=== PATIENT | female | born 1965 | race Hispanic/Latino ===

== ENCOUNTER 2016-07-15 09:05 | Day surgery (SDC) | payer OTHER ==
[~2016-07-15] VITALS: Ht 165.1 cm; Wt 117.9 kg
[~2016-07-15 09:05] MED LIST: ASCO100089 PO; ASPI-973 PO; CHOL100045 PO; DOXY100C2 PO; FERR325C PO; FLUT9.9S NS; GLIP10TA10 PO; IBUP800T28 PO; LISI10TA PO; Lactated Ringer's 1,000 ML IV ONE; MAGN400C PO; METF1000 PO; METH500T PO; OMEG1000 PO; VIT1TABL83 PO; VITA200C61 PO
[2016-07-15] MEDS ORDERED: Propofol 10,000 mCg/mL 20 mL Inj ONE (09:06)
[2016-07-15] MEDS ORDERED: ATRV10T PO (09:22)
[2016-07-15 09:27] VITALS: BP 111/62; PULSE 82; RESP 16; O2SAT 99
[2016-07-15] MEDS ORDERED: NPH,100V11 SUBQ (09:27)
[2016-07-15] MEDS ORDERED: Lactated Ringer's 1,000 ML IV SCH (09:45)
[2016-07-15] MEDS ORDERED: Ondansetron 2 mg/mL 2 mL Inj IVPUSH PRN (09:45)
[2016-07-15] MEDS ORDERED: MetoCLOpramide 5 mg/mL 2 mL Inj IVPUSH PRN (09:45)
[2016-07-15 10:09] VITALS: BP 111/67; PULSE 74; RESP 14; O2SAT 100
[2016-07-15 10:18] VITALS: BP 107/60; PULSE 76; RESP 14; O2SAT 99
[2016-07-15 10:22] VITALS: BP 114/59; PULSE 81; RESP 16; O2SAT 100
--- NOTE | 2016-07-15 11:06 | ENDO ---
[address] [address] ENDOSCOPY PROCEDURE PATIENT: LANE PEREZ : 1965 MR#: [id number] ADMIT: 07/15/2016 JOB ID: [id number] DATE OF SERVICE: 07/15/2016 TYPE OF OPERATION: 1. Esophagogastroduodenoscopy with biopsy. 2. Colonoscopy with biopsy. PREOPERATIVE DIAGNOSIS(ES): 1. iron def anemia. 2. Loose stools. POSTOPERATIVE DIAGNOSIS(ES): 1. Normal upper endoscopy, status post biopsy. 2. Normal colonoscopy, status post biopsy. ANESTHESIA: Monitored anesthesia care. COMPLICATIONS: None. ESTIMATED BLOOD LOSS: Minimal. DESCRIPTION OF PROCEDURE: After risks and benefits explained to the patient, informed consent was obtained. After anesthesia administered, upper endoscope was then inserted in mouth intubating through the esophagus, stomach, second portion of duodenum. Mucosa carefully examined. After procedure was done, the scope withdrawn and procedure terminated. Colonoscope was then inserted from the rectum to the terminal ileum. Mucosa carefully examined. Prep of the patient was excellent. After procedure was done, the scope withdrawn and procedure terminated. FINDINGS: Upon inspection of the esophagus, esophagus was normal. No masses, ulcers, or lesions. Z-line located 40 cm from incisors. Upon entered the stomach, at the time of admission stomach was normal without masses, ulcers, or lesions. Retroflexion revealed normal duodenal bulb, first and second portion normal. Biopsies taken of the duodenum. Upon inspection of the anus, no masses, hemorrhoids, ulcers, or fissures were seen. Throughout the entire examination, there were no polyps, masses, or lesions. Retroflexion was normal. Biopsies taken in terminal and random colon. IMPRESSION: 1. Normal upper endoscopy. 2. Normal colonoscopy, status post biopsy. RECOMMENDATION: Await pathology results. Follow up in GI clinic as needed. BRANDAN
--- NOTE | 2016-07-15 16:41 | PCM.ANEP1 ---
Post Anesthesia Phase 1 PACU Phase 1 Assessment Vital Signs Vital Signs Date Time Temp Pulse Resp B/P Pulse Ox O2 Delivery O2 Flow Rate FiO2 07/15/16 10:22 81 16 114/59 100 Room Air 07/15/16 10:18 76 14 107/60 99 Room Air 07/15/16 10:09 36.0 74 14 111/67 100 Nasal Cannula 4 07/15/16 09:27 82 16 111/62 99 Room Air Anesthetic Administered: MAC Level of Alertness: Awake, talking COLON's with Equal Strength: Yes Pain: No Nausea or Vomiting: No Cardiovascular Function and Hy: No Oxygen Delivery: Room Air Lungs: Clear to Auscultation, Normal Air Movement Dermatome Level: Full Sensation Complications: No Follow up Care: No Wyatt Miller MD Jul 15, 2016 16:41
--- NOTE | 2016-07-15 16:41 | PCM.HPANE ---
Patient Data Surgeon Admitting Provider: Attending Provider:Adal Ugalde MD Primary Care Physician:Masood Foote MD Other Provider:Ledy Benoitingham Anesthesia Reason for Visit Iron Deficiancy Anemia Ht/WT & BMI Body Mass Index Allergies Coded Allergies: No Known Allergies (Verified Allergy, Unknown, 07/15/16) Past Anesthesia History Anesthesia History: Denies:: Abnormal Airway, Anesthesia Reactions, Difficult Intubation, Fam Anesthesia Reaction, Fam Malignant Hypertherm, Malignant Hyperthermia Diabetes History Hx Diabetes?: Yes MRSA MRSA: No Medications Reported Medications NPH, Human Insulin Isophane (HUMulin-N U100 Insulin Vial)100 Unit/1 Ml Vial14 Unit SUBQ BID #1 VIAL Ref 0 07/15/16 Atorvastatin (Lipitor)10 Mg Tab10 Mg PO DAILY Ref 0 07/15/16 Ascorbic Acid (Vitamin C)1,000 Mg Tab.chew1,000 Mg PO DAILY Ref 0 07/14/16 Magnesium Oxide (Magnesium)400 Mg Ktnuaju906 Mg PO DAILY 07/14/16 Ferrous Sulfate (Iron)325 Mg Capsule.er325 Mg PO DAILY 07/14/16 Ibuprofen 800 Mg Fcnpbv707 Mg PO TID PRN For Pain Ref 0 07/14/16 [place]-3 Fatty Acids (Fish Oil Concentrate)1,000 Mg Capsule1,000 Mg PO DAILY 07/14/16 Doxycycline Hyclate 100 Mg Aijiexk572 Mg PO BID 07/14/16 Vit B Comp/C/FA/Iron/Vit E (Vitamin B Complex Tablet)1 Each Tablet1 Each PO BID 07/14/16 Vitamin E (Dl,Tocopheryl Acet) (Vitamin E)200 Unit Dysgakq670 Unit PO DAILY 02/18/16 Cholecalciferol (Vitamin D3) (Vitamin D)1,000 Unit Capsule1,000 Unit PO DAILY # 1 BOTTLE Ref 0 02/18/16 Methocarbamol (Robaxin)500 Mg Zmixbo001-8,000 Mg PO Q8H SPASMS 02/18/16 Lisinopril 10 Mg Izwrze67 Mg PO DAILY 30 Days Ref 0 02/18/16 Metformin (Glucophage)1,000 Mg Tablet1,000 Mg PO BID Ref 0 02/18/16 Fluticasone Propionate (Flonase Allergy Relief)50 Mcg/Actuation [place].susp1 [place] DAILY 02/18/16 Aspirin 81 Mg Bjifbe37 Mg PO DAILY Ref 0 02/18/16 Discontinued Reported Medications Glipizide 10 Mg Dimpsq87 Mg PO BID 30 Days 07/14/16 Discontinued Scripts Ertapenem Sodium (Invanz)1 Gm Vial.port1 Gm IV DAILY #6 Prov:Colin Cook MD 02/21/16 Insulin Aspart (NovoLOG U-100 Pen)100 Unit/Ml Insuln.pen2 Unit SC TIDWM 30 Days Prov:Colin oCok MD 02/21/16 Insulin Glargine (Lantus U100 Solostar Insulin Pen)100 Unit/1 Ml Insuln.pen30 Unit SUBQ QAM #1 PENINJ Ref 0 Prov:Colin Cook MD 02/21/16 History History of ENT Problems?: Yes HEENT History: Positive for:: Sinus Problem (Sinus infections in the past.) Denies:: Abnormal Airway Cataracts Difficult Intubation Dysphagia Hearing Problem Hx of Heart Problems?: Yes Cardiovascular History: Positive for:: Edema (feet) Hypertension Denies:: Cardiac Surgery Chest Pain Congestive Heart Failure Heart Murmur Irregular Heartbeat Pacemaker Thrombophlebitis Valvular Heart Disease Hx of Respiratory Problem?: No Respiratory History: Denies:: Tuberculosis Hx Neurologic Problems?: Yes Neurological History: Positive for:: Dizziness (in the past) Headaches (once in a while) Denies:: Alzheimer's Disease CVA Dementia Parkinson's Disease Seizures Hx of GI Problems?: Yes Gastrointestinal History: Positive for:: Heartburn (once in a while) Denies:: Diverticulitis Gastroesphageal Reflux Gastrointestinal Bleeding Hepatitis Hiatal Hernia Rectal Bleeding Genitourinary History: Positive for:: Urinary Tract Infection (currently) Denies:: HX of Hemodialysis Kidney Stones HX of Peritoneal Dialysis: No Female Hx: Denies:: Currently Endometriosis Pelvic Inflammatory Problems with Breasts? Hx Musculoskeletal Problems?: Yes Musculoskeletal History: Denies:: Back Injury Joint Replacement Musculoskeletal Trauma Hx of Psycho/Social Problems?: No Psycho Social History: Positive for:: Hx Depression Denies:: Anxiety Bipolar Disorder Suicide Attempt Hx Surgeries?: Yes (gallstones, tubal ligation, tonsils) Hx Any Other Health Problems?: Yes Other History: Positive for:: Hospitalization (Childbirth, gallstones,) Denies:: Cancer Thyroid Disease History Blood Transfusions: Denies:: Blood Transfuse Reaction Blood Transfusions Hx Diabetes: Yes Hx Alcohol Use: NoHx Substance Use: No Smoking Status: Never Smoker Stop/Bang Risk Assessment Category Category 1A: Patient has history of documented sleep apnea, and HAS NOT received any narcotic, sedative or anesthesia administration during this stay. Category 1B: Patient has history of documented sleep apnea, and HAS received any narcotic , sedative or anesthesia administration during this stay Category 2: Patient has SUSPECTED Obstructive Sleep Apnea, and HAS received any narcotic , sedative or anesthesia administration during this stay. Category 3: Patient has SUSPECTED Obstructive Sleep Apnea and HAS NOT received narcotic, sedative or anesthesia administration during this stay. Category 4: Outpatient in Procedural Areas with known sleep apnea or who screen positive for High Risk via the STOP/BANG questionnaire. Exam Exam General Appearance: Alert, Oriented X3, Cooperative, No Acute Distress HEENT/AIRWAY: MP 2, Neck Movement Lungs: Clear to Auscultation, Normal Air Movement Heart: Exam Unremarkable, Regular Rate/Rhythm, No Murmurs/Rubs/Gallops Plan Impression Patient chart reviewed, patient interviewed and anesthestic plan with risks, benefits, and alternatives discussed, and informed consent obtained. NPO Status: > 8hrs ASA Physical Status: ASA3 Severe Disease Anesthetic Plan: MAC Bene/Risks/Altern/Consents: Yes HP Complete Prior to Induction: Yes Wyatt Miller MD Jul 15, 2016 07:38
--- NOTE | 2016-07-17 16:42 | PATH ---
SURGICAL PATHOLOGY Attending Physician:Adal Ugalde MD CASE STATUS: Signed Out PATIENT NAME: LANE PEREZ PID: [id number] : 1965 DATE COLLECTED:07/15/2016 20:10 SPECIMEN: 1: Duodenum, Biopsy 2: Ileum, Biopsy 3: Colon, Biopsy CLINICAL HISTORY: 1). DUODENUM BIOPSY 2). TERMINAL ILEUM BIOPSY 3). RANDOM COLON BIOPSY FINAL DIAGNOSIS: 1.DUODENUM, BIOPSY: DUODENAL MUCOSA WITH NO SIGNIFICANT DIAGNOSTIC ABNORMALITY. Negative for active inflammation, features of sprue, dysplasia, and malignancy. 2.TERMINAL ILEUM, BIOPSY: SMALL BOWEL MUCOSA WITH NO DIAGNOSTIC ABNORMALITY. Negative for active inflammation, dysplasia, and malignancy. 3.RANDOM COLON, BIOPSY: COLONIC MUCOSA WITH NO DIAGNOSTIC ABNORMALITY. Negative for active, chronic and microscopic colitis. Negative for dysplasia and malignancy. ICD10 code R10.9 GROSS DESCRIPTION: The specimen is received in three formalin filled containers labeled with the patient's name. 1). The specimen is sublabeled "duodenum" and consists of 2 portions of tissue which aggregate to 0.3 x 0.3 x 0.2 CM. The specimen is entirely submitted in cassette 1A. 2). The specimen is sublabeled "TI" and consists of 2 portions of tissue which aggregate to 0.3 x 0.3 x 0.3 CM. The specimen is entirely submitted in cassette 2A. 3). The specimen is sublabeled "random colon" and consists of multiple portions of tissue which aggregate to 2.4 x 0.4 x 0.2 CM. The specimen is entirely submitted in cassette 3A. 07/15/2016 [facility] MICRO DESCRIPTION: See diagnosis. ICD-9 CODES: CPT CODES: 1: 31620 2: 77868 3: 80434 Electronically Signed Out France Romero MD [facility] Pathology [facility] [address], [place] [address] Technical component performed at [facility], [facility] [address], [place], [address]
== END 2016-07-15 23:59 | disposition home or self-care (01) ==
LOC: END 09:05
PROVIDERS: ATTEND Internal Medicine Gastroenterology
DX: D50.9 Iron deficiency anemia, unspecified (principal); R19.5 Other fecal abnormalities; I10 Essential (primary) hypertension; E11.9 Type 2 diabetes mellitus without complications; M19.90 Unspecified osteoarthritis, unspecified site; E78.5 Hyperlipidemia, unspecified; K76.0 Fatty (change of) liver, not elsewhere classified; F32.9 Major depressive disorder, single episode, unspecified; Z86.010 Personal history of colon polyps; Z79.82 Long term (current) use of aspirin; Z79.84 Long term (current) use of oral hypoglycemic drugs; E66.3 Overweight; Z68.42 Body mass index [BMI] 45.0-49.9, adult
CPT/HCPCS: 43239; 45380; 88305; J7120